=== PATIENT | male | born 1995 | race Caucasian/White ===

== ENCOUNTER 2017-04-30 23:19 | Emergency (ER) | payer SELFPAY ==
[~2017-04-30] VITALS: Ht 167.6 cm; Wt 72.6 kg
[2017-04-30 23:30] VITALS: BP 120/76
--- NOTE | 2017-05-01 00:39 | Emergency Room Report ---
History of Present Illness General Chief Complaint: Altered Level of Consciousness Source: Patient, EMS Present Illness HPI This is a 21-year-old male with unknown medical problem. He presents with chief complaint of chest pain. He said he has a cracked rib. He was in front of a hotel screaming that his chest hurt. Denies any fever chills denies any nausea vomiting. Denies any recent trauma. History is limited because of is not cooperating. Denies any other complaint. Allergies: Coded Allergies: UNABLE TO ASSESS (Unverified , 04/30/17) NOT ANSWERING QUESTIONS Patient History Past Medical History: see triage record, old chart reviewed Past Surgical History: unable to obtain Family History: unable to obtain Immunizations: other Reviewed Nursing Documentation: PMH: Agreed, PSxH: Agreed Nursing Documentation-PMH Past Medical History Deferred: Pt Cognitively Impaired Review of Systems ENT: Denies: sore throat Cardiovascular: Reports: chest pain, Denies: palpitations Gastrointestinal/Abdominal: Denies: nausea, vomiting, diarrhea Musculoskeletal: Denies: back problems Skin: Denies: rash Neurological: Denies: CROCKETT, seizures All Other Systems: negative except mentioned in HPI Physical Exam Vital Signs Date Time Temp Pulse Resp B/P (MAP) Pulse Ox O2 Delivery O2 Flow Rate FiO2 04/30/17 23:12 98.1 120 18 120/76 98 Room Air vitals normal except for tachycardia Sp02 EP Interpretation: reviewed General Appearance: alert/responsive, no apparent distress, non-toxic Head: normocephalic, atraumatic Eyes: PERRL, EOMI ENT: oropharynx normal Neck: supple/symm/no masses Respiratory: effort normal, no rhonchi, no wheezing Cardiovascular: no murmur, gallop, rub Gastrointestinal: non-tender, no mass, non-distended, no rebound/guarding, normal bowel sounds Musculoskeletal: gait & station normal Neurologic: oriented x3, sensory intact, other Psychiatric: other - Very agitated Skin: no rash, normal palpation Medical Decision Making Diagnostic Impression: Primary Impression: Psychosis Qualified Codes: F23 - Brief psychotic disorder Additional Impression: Drug abuse ER Course Patient presents with psychosis secondary to drug abuse. He was very agitated had to give him Haldol. It calm him down. He slept comfortably through the night. No suicidal thoughts or homicidal thought. [place] better now. No criteria for 5150. Wants to go home. I told him to wait until the morning. Last Vital Signs Date Time Temp Pulse Resp B/P (MAP) Pulse Ox O2 Delivery O2 Flow Rate FiO2 04/30/17 23:30 98.1 120 18 120/76 98 Room Air Status: improved Disposition: HOME, SELF-CARE Condition: Stable Additional Instructions: Stop using drugs. Go to rehabilitation. Followup with mental health in 7 days. Return if worse. EN CUEVAS M.D. May 01, 2017 00:39
[2017-05-01] MEDS ORDERED: Haloperidol 5mg/ml Inj IM ONE (00:45)
[2017-05-01 02:05] VITALS: BP 97/53
[2017-05-01 05:37] VITALS: BP 100/60
[2017-05-01 06:06] VITALS: BP 100/60
== END 2017-05-01 06:15 | disposition home or self-care (01) ==
LOC: EDBD 23:19 → EMR 23:39
DX: F19.10 Other psychoactive substance abuse, uncomplicated (principal); F23 Brief psychotic disorder
CPT/HCPCS: 80300; 96372; 99283; J1630